=== PATIENT | male | born 1970 | race Caucasian/White ===

== ENCOUNTER 2019-06-21 13:59 | Day surgery (SDC) | payer BC ==
[2019-06-19 13:28] LABS: BASOPHILS % (AUTO) 0.3 % (0-1); EOSINOPHILS % (AUTO) 0.3 % (0-6); LYMPHOCYTES # (AUTO) 1.4 X10'3 (1.1-4.8); LYMPHOCYTES % (AUTO) 10.2 % (21-51); MEAN CORPUSCULAR HEMOGLOBIN 27.1 PG (27.0-31.0); MEAN CORPUSCULAR HGB CONC 33.5 g/dL (33.0-36.5); MEAN PLATELET VOLUME 8.7 FL (7.4-10.4); MONOCYTES # (AUTO) 0.2 X10'3 (0-0.9); MONOCYTES % (AUTO) 1.1 % (2-12); NEUTROPHILS # (AUTO) 12.4 X10'3 (1.8-7.7); NEUTROPHILS % (AUTO) 88.1 % (42-75); PRE OP HEMATOCRIT 47.1 % (42.0-52.0); PRE OP HEMOGLOBIN 15.8 g/dL (14.0-17.9); PRE OP PLATELET COUNT 255 X10'3 (140-440); RED BLOOD COUNT 5.82 X10'6 (4.70-6.10)
[2019-06-19 13:41] LABS: PRE OP PROTIME 10.2 SECONDS (9.0-12.0)
[2019-06-19 13:45] LABS: ALBUMIN 3.8 G/DL (3.4-5.0); ALBUMIN/GLOBULIN RATIO 1.1 (1.1-1.5); ALKALINE PHOSPHATASE 72 IU/L (46-116); BLOOD UREA NITROGEN 17 MG/DL (7-18); BUN/CREATININE RATIO 15.6 (5.4-32.0); CALCIUM 8.9 MG/DL (8.5-10.1); CHLORIDE 105 MMOL/L (99-107); CREATININE 1.09 MG/DL (0.60-1.10); PRE OP ALT 72 U/L (30-65); PRE OP ANION GAP 10 (8-16); PRE OP AST 22 U/L (10-37); PRE OP BILIRUB, TOTAL 0.7 MG/DL (0.0-1.0); PRE OP GLUCOSE 143 MG/DL (70-104); PRE OP POTASSIUM 4.6 MMOL/L (3.4-5.1); PRE OP SODIUM 139 MMOL/L (135-145); TOTAL CARBON DIOXIDE 24.1 MMOL/L (24-32); TOTAL PROTEIN 7.3 G/DL (6.4-8.2); eGFR 73 ML/MIN
[~2019-06-21] VITALS: Ht 175.3 cm; Wt 115.7 kg
[~2019-06-21 13:59] MED LIST: ADAL40PE SUBCUT; FOLI0.4T2 PO; HYDR-3973 PO; METH2.5T PO; PRED50TA PO; cefazolin/dext.iso 2gm/100ml 100 ML IV ONE; famotidine 20mg tablet PO ONE; ringers solution, lacted 1,000 ML IV SCH; vancomycin inj 1,500 MG in normal saline 300ml IV soln IV ONE
[2019-06-21 14:00] VITALS: BP_SYST 125; BP_DIAS 68; BP_DIAS 73
[2019-06-21] MEDS ORDERED: LIDOcaine 1% 30ml preserv. free vial ONE (16:03)
[2019-06-21] MEDS ORDERED: BUPIVAcaine/PF 2.5 mg/ml (0.25%) 30ml vial ONE (16:19)
[2019-06-21] MEDS ORDERED: MIDAZolam 5mg/5ml vial ONE (16:38)
[2019-06-21] MEDS ORDERED: fentaNYL/PF 50MCG/1 ML 2ML syringe ONE (16:38)
[2019-06-21] MEDS ORDERED: ketorolac trometh. 30mg/ml inj. ONE (16:47)
[2019-06-21 17:14] VITALS: BP 114/58
--- NOTE | 2019-06-21 17:14 | NUR ---
Received from OR via [facility], accompanied by Anesthesiologist DR GORDON and report given by Anesthesiologist. PT AWAKE, DENIES PAIN, LEFT ELBOW W/TIKI WRAP COVERING INCISION CDI. Addendum: 06/21/19 at 1810 by Rubi Jimenez RN Amended: Links added.
[2019-06-21 17:24] VITALS: BP 125/86
[2019-06-21 17:34] VITALS: BP 136/84
[2019-06-21 17:44] VITALS: BP 134/85
--- NOTE | 2019-06-21 17:54 | NUR ---
D/C INSTRUCTIONS GIVEN AND GONE OVER W/PT AND PTS WHOM VERBALIZE UNDERSTANDING, D/CD PT TO HOME VIA W/C TO PRIVATE VEHICLE W/O INCIDENT. Addendum: 06/21/19 at 1816 by Rubi Jimenez RN Amended: Links added.
== END 2019-06-21 17:54 | disposition home or self-care (01) ==
LOC: PAS 13:59
PROVIDERS: ATTEND Orthopaedic Surgery
DX: M79.89 Other specified soft tissue disorders (principal); I10 Essential (primary) hypertension; D64.9 Anemia, unspecified; M17.12 Unilateral primary osteoarthritis, left knee; M06.00 Rheumatoid arthritis without rheumatoid factor, unspecified site; M10.9 Gout, unspecified; E66.01 Morbid (severe) obesity due to excess calories; Z68.36 Body mass index [BMI] 36.0-36.9, adult; Z98.890 Other specified postprocedural states; Z79.899 Other long term (current) drug therapy; Z72.89 Other problems related to lifestyle
CPT/HCPCS: 20205; 36415; 80053; 82948; 85025; 85610; 85730; A6222; J1885; J2001; J2250; J3010; J3370; J3490; A4215; A6449; A7000; J7120